=== PATIENT | male | born 1980 | race Caucasian/White ===

== ENCOUNTER → 2024-11-28 16:14 | Outpatient (REF) | payer OTHER, BC, SELFPAY | LOC: RAD 16:14 | PROVIDERS: ATTENDING PHYSICIAN Physician Assistant | DX: M25.522 Pain in left elbow (principal) | CPT/HCPCS: 73080 ==

== ENCOUNTER → 2024-12-19 10:25 | Outpatient (REF) | payer OTHER, BC, SELFPAY | LOC: MRI 10:25 | PROVIDERS: ATTENDING PHYSICIAN Orthopaedic Surgery; FAMILY PHYSICIAN Physician Assistant | DX: M25.522 Pain in left elbow (principal) | CPT/HCPCS: 73221 ==